=== PATIENT | male | born 1980 | race Caucasian/White ===

== ENCOUNTER → 2017-08-06 | Outpatient (CLI) | payer OTHER ==
[~2017-08-06] MED LIST: AFRIN15 ML NASAL; AMOXICILLIN875 MG PO; AUGMENTIN 875875 MG PO; AZITHROMYCIN 2250 MG PO; COUGH MEDICINE; ERYTHROMYCIN E3.5 G3 OPHTHALMIC; IBUPROFEN 800800 M1 PO; MEDROLDOSEPACK PO; NOHOMEMEDICATIONS; NORCO 5-325 TA1 EACH PO; OSELB75 PO; PAXIL10 MG PO; PREDNISONE 20 M20 M1 PO; PRILOSEC 20 MG20 MG PO; PROMETHAZINE-D120 ML PO; ZPAK PO
--- NOTE | 2017-08-07 08:40 | TST ---
[place] [address] TREADMILL STRESS TEST Name: GINO GARCIA Room: [facility]#: [id number] Admission: 08/06/17 Attend Phys: Tresa Shah, Discharge: Date of : 78 Date of Service: 08/06/17 1633 Report #: [id number] THIS REPORT FOR: //name// CC: Lesly Shah MD PROCEDURE: Standard Baudilio protocol exercise treadmill stress test. PROCEDURE INDICATION: Chest pain. The patient exercised for a total of 10 minutes and 4 seconds per the standard Baudilio protocol. The baseline blood pressure was 126/88 mmHg with a resting pulse rate of 81 beats per minute. At peak stress, the blood pressure was 169/85 mmHg with a peak stress heart rate 169 beats per minute. In recovery, the blood pressure was 130/92 mmHg with a recovery heart rate of 94 beats per minute. The patient achieved 92% of the age-predicted maximum heart rate and an energy expenditure equivalent to 11.86 METS. The patient exhibited normal exercise capacity. Exercise was discontinued due to dyspnea. The patient had no chest discomfort with exercise. The baseline 12-lead electrocardiogram shows normal sinus rhythm. EKGs obtained during and post-standard Baudilio protocol exercise showed sinus rhythm and sinus tachycardia with no significant ST or T-wave changes when compared to baseline. There were no stress-induced arrhythmias. IMPRESSION: 1. Clinical response: Nonischemic. 2. EKG response: Nonischemic. 3. Exercise capacity: Normal. A standard Baudilio protocol exercise stress test shows no evidence to suggest-induced ischemia. The patient did have a reasonable exercise tolerance. This is a low-risk study. <ELECTRONICALLY SIGNED> By: Alfred Patrick MD, FACC 08/07/17 0840 [id number] Alfred Patrick MD, FACC /nt
== END ==
LOC: M.CRD 12:39
DX: R07.2 Precordial pain (principal)

== ENCOUNTER 2017-09-16 07:59 | Emergency (ER) | payer OTHER ==
[~2017-09-16] VITALS: Ht 175.3 cm; Wt 108.9 kg
[~2017-09-16 07:59] MED LIST changes: -COUGH MEDICINE; -OSELB75 PO; -PAXIL10 MG PO; -PRILOSEC 20 MG20 MG PO
[2017-09-16] MEDS ORDERED: PRILOSEC 20 MG20 MG PO (08:06)
[2017-09-16] MEDS ORDERED: COUGH MEDICINE (08:06)
[2017-09-16] MEDS ORDERED: PAXIL10 MG PO (08:06)
[2017-09-16] MEDS ORDERED: OSELB75 PO (08:06)
[2017-09-16 08:30] LABS: ABSOLUTE EOSINOPHILS 0.1 thou/uL (0.0-0.7); ABSOLUTE LYMPHOCYTES 1.4 thou/uL (0.8-5.3); ABSOLUTE MONOCYTES 0.5 thou/uL (0.0-1.2); ABSOLUTE NEUTROPHILS 1.7 thou/uL (1.6-8.1); BASOPHILS 0.6 %; HEMATOCRIT 42.5 % (42.0-52.0); HEMOGLOBIN 14.6 gm/dL (14.0-18.0); LYMPHOCYTES 36.3 %; MCH 30.5 pg (26.0-34.0); MCHC 34.4 g/dL (28.0-37.0); MCV 88.6 fL (80.0-100.0); MONOCYTES 14.5 %; MPV 7.7 fl. (7.2-11.1); NUCLEATED RBCS 0 /100WBC; PLATELET COUNT* 174 thou/uL (150-400); POLYS 44.6 %; RBC 4.79 mil/uL (4.50-6.00); WBC 3.7 thou/uL (4.0-11.0)
[2017-09-16 08:36] LABS: CALCIUM 7.9 mg/dL (8.5-10.1); POTASSIUM 3.5 mmol/L (3.5-5.1)
[2017-09-16 08:41] LABS: ALBUMIN 3.4 g/dL (3.4-5.0); TOTAL BILIRUBIN 0.4 mg/dL (<0.1-1.0); TOTAL PROTEIN 7.3 g/dL (6.4-8.2)
[2017-09-16 09:12] VITALS: BP 112/68
--- NOTE | 2017-09-16 17:42 | EKG ---
[place] [address] ELECTROCARDIOGRAM REPORT Name: GINO GARCIA Room: [facility]#: [id number] Admission: 09/16/17 Attend Phys: Discharge: 09/16/17 Date of : 78 Report #: [id number] THIS REPORT FOR: //name// [facility] ED Test Date: 2017-09-16 Test Time: 08:04:31 Pat Name: GINO GARCIA Department: Room: Gender: M [employer] Professor: Rai JONES : 1980 Requested By: Og Gordon Order Number: [id number] MD: Jesus Alberto Briggs Measurements Intervals [place] Rate: 72 P: 21 MT: 173 QRS: 24 QRSD: 89 T: 7 QT: 388 QTc: 425 Interpretive Statements Sinus rhythm Baseline wander in lead(s) V4 Compared to ECG 07/24/2017 07:11:13 Sinus bradycardia no longer present Poor R-wave progression no longer present Electronically Signed On 09-16-2017 17:42:11 [employer] by Jesus Alberto Briggs [email or web address] <ELECTRONICALLY SIGNED> By: Jesus Alberto Briggs MD, [facility] 09/16/17 1742 [id number] Jesus Alberto Briggs MD, [facility] /EPI
== END 2017-09-16 09:13 | disposition home or self-care (01) ==
LOC: M.ERS 07:59
PROVIDERS: Emergency Medicine
DX: R55 Syncope and collapse (principal); F10.99 Alcohol use, unspecified with unspecified alcohol-induced disorder

== ENCOUNTER 2021-03-10 20:28 | Emergency (ER) | payer OTHER ==
[~2021-03-10] VITALS: Ht 175.3 cm; Wt 114.8 kg
[~2021-03-10 20:28] MED LIST changes: +COUGH MEDICINE; +OSELB75 PO; +PAXIL10 MG PO; +PRILOSEC OTC20 MG PO
[2021-03-10 21:54] LABS: ABSOLUTE LYMPHOCYTES 0.8 thou/uL (0.8-5.3); ABSOLUTE MONOCYTES 0.4 thou/uL (0.0-1.2); ABSOLUTE NEUTROPHILS 3.5 thou/uL (1.6-8.1); BASOPHILS 0.3 %; EOSINOPHILS 0.1 %; HEMATOCRIT 41.8 % (42.0-52.0); HEMOGLOBIN 14.6 gm/dL (14.0-18.0); LYMPHOCYTES 17.3 %; MCH 30.1 pg (26.0-34.0); MCHC 34.9 g/dL (28.0-37.0); MCV 86.2 fL (80.0-100.0); MONOCYTES 9.4 %; MPV 7.8 fl. (7.2-11.1); NUCLEATED RBCS 0 /100WBC; PLATELET COUNT* 167 thou/uL (150-400); POLYS 72.9 %; RBC 4.85 mil/uL (4.50-6.00); RDW-CV 13.6 % (10.5-14.5); WBC 4.7 thou/uL (4.0-11.0)
[2021-03-10 22:05] LABS: CALCIUM 7.9 mg/dL (8.5-10.1); CREATININE 1.1 mg/dL (0.6-1.3); POTASSIUM 3.6 mmol/L (3.5-5.1)
[2021-03-10 22:09] LABS: ALBUMIN 3.6 g/dL (3.4-5.0); TOTAL BILIRUBIN 0.8 mg/dL (<0.1-1.0)
[2021-03-10 23:29] LABS: URINE BLOOD NEGATIVE (Negative); URINE CLARITY CLEAR; URINE COLOR YELLOW; URINE GLUCOSE-RANDOM NEGATIVE (Negative); URINE LEUKOCYTES-REFLEX NEGATIVE (Negative); URINE NITRITE-REFLEX NEGATIVE (Negative); URINE PROTEIN 1+ (Negative); URINE SPECIFIC GRAVITY >= 1.030 (1.005-1.030); URINE UROBILINOGEN 0.2 E.U./dl (0.2-1.0)
[2021-03-10 23:51] LABS: ICTOTEST (BILI CONFIRMATORY) Negative (Negative); URINE BILIRUBIN 1+ (Negative); URINE KETONES 3+ (Negative)
[2021-03-10 23:53] LABS: ACETEST (KETONE CONFIRMATORY) Moderate (Negative)
[2021-03-10] MEDS ORDERED: ZOFRAN ODT4 MG PO (23:59)
[2021-03-11 00:13] VITALS: BP 132/74
== END 2021-03-11 00:13 | disposition home or self-care (01) ==
LOC: M.ERS 20:28
PROVIDERS: Personal Emergency Response Attendant
DX: U07.1 COVID-19 (principal); E87.2 Acidosis; E86.0 Dehydration; Z98.890 Other specified postprocedural states

== ENCOUNTER 2021-03-12 01:02 | Observation (INO) | payer OTHER ==
[~2021-03-12] VITALS: Ht 175.3 cm; Wt 114.8 kg
[~2021-03-12 01:02] MED LIST changes: +ZOFRAN ODT4 MG PO
[2021-03-12 01:20] VITALS: BP 111/73
[2021-03-12 01:48] LABS: BE -0.1 mmol/L (-2 to +3); PCO2 32.2 mmHg (35.0-45.0); PO2 61.7 mmHg (75.0-100.0); pH 7.468 (7.340-7.450)
[2021-03-12 02:08] LABS: ABSOLUTE MONOCYTES 0.4 thou/uL (0.0-1.2); ABSOLUTE NEUTROPHILS 3.5 thou/uL (1.6-8.1); BASOPHILS 0.3 %; HEMATOCRIT 39.7 % (42.0-52.0); HEMOGLOBIN 13.6 gm/dL (14.0-18.0); LYMPHOCYTES 20.9 %; MCH 29.7 pg (26.0-34.0); MCHC 34.3 g/dL (28.0-37.0); MCV 86.7 fL (80.0-100.0); MONOCYTES 8.6 %; MPV 7.3 fl. (7.2-11.1); NUCLEATED RBCS 0 /100WBC; PLATELET COUNT* 149 thou/uL (150-400); POLYS 70.2 %; RBC 4.58 mil/uL (4.50-6.00); RDW-CV 13.6 % (10.5-14.5)
[2021-03-12 02:12] LABS: CALCIUM 7.7 mg/dL (8.5-10.1); CREATININE 1.1 mg/dL (0.6-1.3)
[2021-03-12 02:16] LABS: ALBUMIN 3.2 g/dL (3.4-5.0); MAGNESIUM 2.2 mg/dL (1.8-2.4); TOTAL BILIRUBIN 0.7 mg/dL (<0.1-1.0); TOTAL PROTEIN 7.2 g/dL (6.4-8.2)
[2021-03-12 08:00] VITALS: BP 121/62
[2021-03-12 11:29] LABS: URINE BILIRUBIN NEGATIVE (Negative); URINE BLOOD NEGATIVE (Negative); URINE CLARITY CLEAR; URINE COLOR YELLOW; URINE GLUCOSE-RANDOM NEGATIVE (Negative); URINE KETONES 2+ (Negative); URINE LEUKOCYTES-REFLEX NEGATIVE (Negative); URINE NITRITE-REFLEX NEGATIVE (Negative); URINE PROTEIN NEGATIVE (Negative); URINE UROBILINOGEN 0.2 E.U./dl (0.2-1.0)
[2021-03-12 13:05] VITALS: BP 121/62
[2021-03-12 14:21] VITALS: BP 112/64
== END 2021-03-12 14:05 | disposition home or self-care (01) ==
LOC: M.ERS 01:02 → M.TBA-ER 04:25
PROVIDERS: Personal Emergency Response Attendant; ADMIT Internal Medicine; ATTEND Internal Medicine
DX: U07.1 COVID-19 (principal); R11.0 Nausea; K21.9 Gastro-esophageal reflux disease without esophagitis; E66.9 Obesity, unspecified; E86.0 Dehydration; Z79.899 Other long term (current) drug therapy

== ENCOUNTER 2021-03-16 13:20 | Emergency (ER) | payer OTHER ==
[~2021-03-16] VITALS: Ht 175.3 cm; Wt 110.7 kg
[2021-03-16 13:39] VITALS: BP 106/74
[2021-03-16] MEDS ORDERED: PROAIR HFA8.5 GM INH (14:00)
[2021-03-16] MEDS ORDERED: ZPAK PO (14:00)
[2021-03-16] MEDS ORDERED: PREDNISONE 20 M20 MG PO (14:00)
== END 2021-03-16 14:43 | disposition home or self-care (01) ==
LOC: M.ERS 13:20
DX: U07.1 COVID-19 (principal); J12.82 Pneumonia due to coronavirus disease 2019